=== PATIENT | female | born 1930 | race Caucasian/White ===

== ENCOUNTER → 2016-06-23 | Outpatient (CLI) | payer MEDICARE, BC ==
[~2016-06-23] MED LIST: ALBU8.5H INH; CALC-1072; DIGO125T88 PO; DOXY100C40 PO; FISH1CAP28; ISOS60TA4 PO; LOSA1TAB56 PO; METR70GE5 VAGINALLY; MULT-933 PO; NITR0.4T SL; ONDA4TAB10 PO; PANT20TA13; PROP15DR OP; RANI150T7 PO; SIMV80TA5 PO; VERA180C3; VIT1CAPS47; WARF3TAB6 PO
--- NOTE | 2016-06-24 07:46 | DI ---
INDICATION: ITS.REASON: J20.9 Acute bronchitis, R09.89 RHONCHI LEFT LUNG BASE, PROCEDURE: CHEST 2-VIEWS UPRIGHT (PA \T\ LAT) Encounter: Initial COMPARISON: None FINDINGS: The lungs are hyperexpanded yet clear without evidence of focal abnormal airspace opacity. There is bibasal parenchymal scarring. There is no pleural effusion or pneumothorax. There is a fixed hiatal hernia. The heart is mildly enlarged in size, mediastinal contours and pulmonary vascularity are within normal limits. Degenerative changes of the spine are noted. IMPRESSION: 1. No acute cardiopulmonary disease. 1. Mild cardiomegaly without overt congestive failure. 3. Mild COPD. .
== END ==
LOC: LAB 11:59
PROVIDERS: ATTEND Nurse Practitioner
DX: J44.9 Chronic obstructive pulmonary disease, unspecified (principal); K44.9 Diaphragmatic hernia without obstruction or gangrene; I51.7 Cardiomegaly; J20.9 Acute bronchitis, unspecified; R09.89 Other specified symptoms and signs involving the circulatory and respiratory systems

== ENCOUNTER 2016-07-11 16:59 | Emergency (ER) | payer MEDICARE, BC ==
[~2016-07-11] VITALS: Ht 165.1 cm; Wt 66.8 kg
[~2016-07-11 16:59] MED LIST changes: -CALC-1072; +CALC-1072 PO; -FISH1CAP28; +FISH1CAP28 PO; -VERA180C3; +VERA180C3 PO; -VIT1CAPS47; +VIT1CAPS47 PO
[2016-07-11 17:00] VITALS: Ht 165.1 cm; Wt 66.8 kg
--- OUTSIDE RECORDS SUMMARY | 2016-07-11 17:03 | XMS REPORT ---
Author Author [facility], [facility] - Organization Unknown Address Unknown Phone Unavailable Allergies, Adverse Reactions, Alerts * Penicillin G causes Eczema (rash). * Latex Allergy has not been assessed. * IV Contrast Allergy has not been assessed. Problems * Chest Pain* Status:Active. Procedures No relevant procedures performed. Medication Medication reconciliation has not been performed. Results LAB--CHEMISTRY from 01/18/2013 11:17 PMAnion Gap 7 (3-20 ) Albumin 3.6 g/dL (3.5-4.8 g/dL) Alkaline Phosphatase 42 U/L (26-104 U/L) ALT (SGPT) 20 U/L (14-54 U/L) AST (SGOT) 22 U/L (15-41 U/L) Bilirubin Total 1.2 mg/dL (0.2-1.2 mg/dL) BUN 18 mg/dL (4-20 mg/dL) Calcium 9.4 mg/dL (8.6-10.0 mg/dL) Chloride 103 mEq/L (99-109 mEq/L) CO2 27 mEq/L (22-32 mEq/L) Creatinine 0.93 mg/dL (0.44-1.03 mg/dL) eGFR 58 A (>60- ) Globulin 2.7 g/dL (1.9-4.3 g/dL) Glucose 111 mg/dL H (70-100 mg/dL) Potassium 3.6 mEq/L (3.6-5.1 mEq/L) Sodium 137 mEq/L (136-144 mEq/L) Protein 6.3 g/dL (6.1-7.9 g/dL) LAB--COAG STUDIES from 01/18/2013 11:17 PMINR 2.3 H (0.9-1.2 ) LAB--HEMATOLOGY from 01/18/2013 11:17 PMAbsolute Basophils 0.02 THOUS (0.00- 0.20 THOUS) Absolute Eosinophils 0.06 THOUS (0.00-0.50 THOUS) Absolute Lymphocytes 1.28 THOUS (0.80-3.30 THOUS) Absolute Monocytes 0.73 THOUS (0.30-1.00 THOUS) Absolute Neutrophils 4.37 THOUS (1.90-7.00 THOUS) HCT 41.8 % (37.0-47.0 %) HGB 14.5 g/dl (12.0-16.0 g/dl) MCH 30.8 pg (27.0-32.0 pg) MCHC 34.7 g/dL (32.0-36.0 g/dL) MCV 88.7 fL (82.0-99.0 fL) MPV 11.0 fL (9.4-12.4 fL) Platelet Count 196 K/uL (150-400 K/uL) RBC 4.71 M/uL (4.00-5.20 M/uL) RDW 13.6 % (11.5-14.5 %) WBC 6.5 K/uL (4.8-10.8 K/uL) Basophils 0 % (0-2 %) Eosinophils 1 % (0-4 %) Immature Granulocytes 0.3 % (0.0-1.0 %) Lymphocytes 20 % (20-46 %) Monocytes 11 % (4-11 %) Nucleated RBC Automated 0.0 /100 WBC (0 /100 WBC) Neutrophils 67 % (51-75 %) LAB--MICROBIOLOGY from 01/19/2013 12:20 AMVaginitis (G vag, Trichomonas, Kathy ) Panel Source: Cervix/Vaginal Collected: 01/19/13 00:20 Site: Received : 01/19/13 00:25 Order#: [id number] Affirm Vaginitis Panel FINAL 01/19/13 01:30 Negative for Trichomonas vaginalis Negative for Gardnerella vaginalis Negative for Kathy species KINNEY FOR RESULTS: * - NEW RESULT - RESULT WAS MODIFIED AFTER FINAL STATUS SET LAB--URINE TESTS from 01/18/2013 11:17 PMAppearance Clear Bilirubin Negative (Negative ) Blood Pos 3+ A (Negative ) Color Yellow Glucose Negative (Negative ) Ketones, Urine Negative (Negative ) Leukocytes Esterase Negative (Negative ) Nitrites Negative (Negative ) pH, Urine 7.0 (5.0-8.0 ) Protein Negative (Negative ) Specific [place] 1.008 (1.003-1.030 ) Collection Type: Clean Catch Urobilinogen Negative mg/dL (-<1.0 mg/dL) Epithelial Cells 0-2 /HPF RBC 20-50 /HPF A (0-2 /HPF) WBC 0-2 /HPF (0-4 /HPF)
--- OUTSIDE RECORDS SUMMARY | 2016-07-11 17:04 | XMS REPORT | Continuity of Care Document ---
Author Author [facility] Organization [facility] Address Unknown Phone Unavailable Support Name Relationship Address Phone CHER WHEELER APRN Caregiver [address] [place] [address] Unavailable CHRISTINA, ELADIA W Caregiver [address] [place] [address] Unavailable KALIE ALVAREZ Next Of Kin Unknown [phone] Insurance Providers Guarantor Digna Alvarez Address [address] [place] [address] Payer [employer] Select Plan 65 Policy Number [id number] Subscriber's Name Digna Alvarez Relationship 18 Self Payer Medicare Policy Number [id number] Subscriber's Name Digna Alvarez Relationship 18 Self Chief Complaint and Reason for Visit Chief Complaint Cough,Fever,Flu,URI Reason for Visit Acute bronchitis Rhonchi at left lung base Problems Past Problems Medical Problem Onset Date Acute bronchitis Unknown Rhonchi at left lung base Unknown Medications Current Home Medications Medication Dose Units Route Directions Days Qty Instructions Start Date Albuterol Sulfate (Proair Hfa 90 Mcg/Actuation) 8.5 Gm Hfa.aer.ad 1 Puff Inhalation Every 6 Hours as needed for Wheezing 7 Days [address] Lamonte Anderson [employer] [facility] [address] [phone] 06/23/16 Calcium Carbonate/Vitamin D3 (Caltrate 600 + D Soft Chew Tab) Unknown Strength Tab.chew Unknown Dose 06/23/16 Digoxin 125 Mcg Tablet 1 Tab Oral Daily 06/23/16 Doxycycline Monohydrate 100 Mg Capsule 1 Cap Oral Twice Daily With Meals 7 Days [address] Lamonte Anderson [employer] * [facility] [address] . [phone] 06/23/16 Isosorbide Mononitrate (Isosorbide Mononitrate Er) 60 Mg Tab.er.24h 1 Tab Oral Daily 30 Tablet 06/23/16 Losartan/Hydrochlorothiazide (Losartan-Hctz 100-12.5 Mg Tab) 1 Each Tablet 1 Tab Oral Daily 06/23/16 Metronidazole 70 Gm Gel.w.appl 1 Applicator Vaginally Bedtime 70 Gram 06/23/16 Multivitamin (Multi-Day Vitamins) 1 Each Tablet 1 Tab Oral Daily 30 Tablet 06/23/16 Nitroglycerin (Nitrostat) 0.4 Mg Tablet 0.4 Mg Sublingual for Chest Tightness 06/23/16 Palmer-3 Fatty Acids/Fish Oil (Palmer 3 1,000 Mg Softgel) 1 Each Capsule 06/23/16 Ondansetron (Ondansetron Odt) 4 Mg Tab.rapdis 1 Tab Oral Every 6-8 Hours Prn 16 Tablet 06/23/16 Pantoprazole Sodium 20 Mg Tablet. 06/23/16 Propylene Glycol/Peg 400 (Systane 0.3-0.4% Eye Drops) 15 Ml Drops 1 Drop Ophthalmic Four Times Daily 30 Milliliter 06/23/16 Ranitidine Hcl 150 Mg Tablet 150 Mg Oral Twice A Day Take 1 tablet, by mouth, 2 times a day. 06/23/16 Simvastatin 80 Mg Tablet 80 Mg Oral Bedtime Take 1 tablet, by mouth , 1 time a day (at BEDTIME). 06/23/16 Verapamil Hcl (Verapamil Sr) 180 Mg Cap24h.pel 06/23/16 Vit C/E/Zn/Coppr/Lutein/Zeaxan (Preservision Areds 2 Softgel) 1 Each Capsule 06/23/16 Warfarin Sodium 3 Mg Tablet 1 Tab Oral Daily 30 Tablet 06/23/16 Social History No social history. Hospital Discharge Instructions No hospital discharge instructions. Plan of Care Discharge Date 06/23/16 11:44am Disposition 01 DISCHARGED HOME, SELF-CARE Condition at Discharge Stable Instructions/Education Provided Acute Bronchitis (GEN) Prescriptions See Medication Section Referrals ELADIA HAQUE Address: [address] [phone] Additional Instructions/Education Please follow up with Dr. Haque this week for a recheck. ER if symptoms worsen. Functional Status No functional status results. Allergies, Adverse Reactions, Alerts Allergen Type Severity Reaction Status Last Updated Penicillin Allergy Mild Active 06/23/16 Immunizations No immunization records. Vital Signs Acute Vital Signs Vital Response Date/Time Temperature (Fahrenheit) 98.1 deg F (96.8 - 99.1) 06/23/2016 11:18am Temperature (Calculated Celsius) 36.72314 degrees C (36.0 - 37.3) 06/23/2016 11:18am Pulse Rate (adult) 62 bpm (60 - 100) 06/23/2016 11:18am Respiratory Rate 24 breaths/min (10 - 20) 06/23/2016 11:18am O2 Sat by Pulse Oximetry 93 % (90 - 100) 06/23/2016 11:18am Blood Pressure 109/57 mm Hg 06/23/2016 11:18am Height (Inches) 63.50 inches 06/23/2016 11:18am Weight (Kilograms) 66.700 kg 06/23/2016 11:18am Body Mass Index (BMI) 25.0 06/23/2016 11:18am Results No known relevant diagnostic tests, laboratory data and/or discharge summary. Procedures No known history of procedures. Encounters Encounter Location Arrival/Admit Date Discharge/Depart Date Attending Provider Departed Emergency Room [facility] 06/23/16 10:31am 06/23/16 11: 44am CHER WHEELER APRN Recent Diagnosis
--- OUTSIDE RECORDS SUMMARY | 2016-07-11 17:04 | XMS REPORT | Continuity of Care Document ---
Author Author [facility] Organization [facility] Address Unknown Phone Unavailable Allergies Active Description Code Type Severity Reaction Onset Reported/Identified Relationship to Patient Clinical Status Yes Penicillin G Drug Allergy N/A Eczema (rash) 07/17/2009 Yes No Known Allergies Drug Allergy Unknown N/A 04/29/2013 Yes Penicillins Drug Allergy Moderate U 04/29/2013 Medications Problems Date Dx Coded Attending Type Code Diagnosis Diagnosed By 01/18/2013 Tai Barber MD Final 401.9 HYPERTENSION NOS 01/18/2013 Tai Barber MD Final 620.2 OVARIAN CYST NEC NOS 01/18/2013 Tai Barber MD Admitting 623.8 NONINFL DISORDER VAG NEC 01/18/2013 Tai Barber MD Final 626.8 MENSTRUAL DISORDER NEC Procedures Code Description Performed By Performed On 17.42 LAPAROSCOPIC ROBOTIC ASSISTED PROCEDURE Ladonna France MD 05/06/2013 66.4 TOTAL UNILAT SALPINGECT Ladonna France MD 05/06/2013 68.41 LAPAROSCOPIC TOTAL ABDOMINAL HYSTERECTOMY Ladonna France MD 05/06/2013 Results Test Result Range CBC - 04/29/13 11:22 MEAN CELL HGB 30.9 pg 27.0-33.0 MEAN CELL HGB CONCENTRATION 34.3 g/dL 32.0-37.0 MEAN CELL VOLUME 90.0 fl 80.0-100.0 RED BLOOD CELL 4.99 m/cumm 4.00-6.00 RED CELL DISTRIBUTION WIDTH 13.7 % 11.0- 15.6 WHITE BLOOD CELL 7.8 k/cumm 5.0-10.0 HEMOGLOBIN 15.4 gm/dL 12.0-16.0 HEMATOCRIT 44.9 % 37.0-47.0 PLATELET COUNT 201 k/cumm 150-400 PROTHROMBIN TIME WITH INR - 04/29/13 11:22 INTERNATIONAL NORMAL RATIO 2.5 0.9-1.1 PROTHROMBIN TIME 27.2 sec 9.3-12.2 METABOLIC PANEL, COMPREHN - 04/29/13 11:22 POTASSIUM 3.7 mmol/L 3.5-5.3 EST GFR (MDRD) > 60 mL/min > 59 ANION GAP 9 mmol/L 5-15 GLUCOSE 109 mg/dL 70-99 CALCIUM 9.9 mg/dL 8.5-10.1 BLOOD UREA NITROGEN 20 mg/dL 7-20 CREATININE 0.9 mg/dL 0.6-1.0 SODIUM 142 mmol/L 135-148 CHLORIDE 105 mmol/L 98-110 AST/SGOT 17 Units/L 10-37 ALT/SGPT 25 Units/L < 66 CARBON DIOXIDE 28 mmol/L 21-32 TOTAL PROTEIN 7.4 gm/dL 6.4-8.2 ALBUMIN 3.9 gm/dL 3.4-5.0 BILI TOTAL 1.4 mg/dL 0.0-1.0 ALKALINE PHOSPHATASE TOTAL 51 IU/L 45- 117 PROTHROMBIN TIME WITH INR - 05/06/13 05:35 INTERNATIONAL NORMAL RATIO 1.0 0.9-1.1 PROTHROMBIN TIME 10.9 sec 9.3-12.2 HGB HCT - 05/06/13 12:45 MEAN CELL VOLUME 91.4 fl 80.0-100.0 HEMOGLOBIN 13.7 gm/dL 12.0-16.0 HEMATOCRIT 41.4 % 37.0-47.0 Encounters ACCT No. Visit Date/Time Discharge Status Pt. Type Provider Facility Loc./Unit Complaint [id number] 01/18/2013 22:30:00 2012 01:25:00 DIS Emergency Sunil HUBER, Tai Hwang [facility]
--- OUTSIDE RECORDS SUMMARY | 2016-07-11 17:05 | XMS REPORT ---
Author Author Pacheco Haque [facility] Address [address] [place] [address] Care Team Providers Care Medical Representative Name Role Phone Pacheco Haque Unavailable [phone] PROBLEMS Type Condition ICD9-CM Code JYM24-AL Code Onset Dates Condition Status SNOMED Code Problem Atrial fibrillation I48.91 Active 55501698 Problem Osteoarthritis M19.90 Active 475833448 Problem Macular degeneration H35.30 Active 170953068 Problem Hypercholesterolemia E78.0 Active 72613068 Problem penitentiary current use of anticoagulant Z79.01 Active 050434392 Problem Other left bundle branch block I44.7 Active 64207215 Problem Rosacea L71.9 Active 386786123 Problem Esophageal reflux K21.9 Active 228020469 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
[2016-07-11] MEDS ORDERED: PANT40TA27 PO (17:19)
[2016-07-11] MEDS ORDERED: ISOS30TA6 PO (17:21)
--- NOTE | 2016-07-11 17:23 | ERPDOC ---
Departure Disposition Decision Date: Jul 11, 2016 Disposition Decision Time: 20:36 () Disposition: 01 DISCHARGED HOME, SELF-CARE Impression Impression (FELY SULLIVAN APRN) Impression: Primary Impression: Atypical chest pain Severity: Moderate () Condition: Improved Seen By: Physician only () Referrals: ELADIA VASQUEZ (Family) 3 Days Problems/Meds/Labs Reviewed?: Yes Medications reviewed and manag: Yes () Additional Instructions: Continue your home medications as prescribed. We did not find a cause of your pain. Follow up with your golf club maker tomorrow as previously arranged. Follow up care ordered?: Yes Mental Status: Alert, Oriented () HPI - Chest Pain General Stated Complaint: CHEST PAIN Time Seen by Provider: 17:18 Source: patient Exam Limitations: no limitations (FELY SULLIVAN APRN) Time Seen by Provider: 20:35 ( ) HPI - Chest Pain Initial Comments Kristan is an 85 year old female who recently has had pneumonia. Finished antibiotics and has been doing fine. Saw her PCP a few weeks ago and had an INR of 7.6, that was rechecked this Friday and was down to 2.8. This morning she developed central chest pressure. It let up and then returned around noon. She took one nitro and it didn't help. Finally decided to come get checked out in ER. Occurred At: home Onset/Timing: Gradual Duration: 6-12 hrs Activities at Onset/Context: none Location: substernal Quality: pressure Associated Symptoms: denies symptoms Nitro Today/Relief: 0.4 mg x 1 Aspirin Treatment Today: unknown (pt refuses because of recently elevated INR) Prior Chest Pain/Cardiac Mo: no prior chest pain Hx of Similar Symptoms: No (FELY SULLIVAN APRN) Allergies: Coded Allergies: Penicillins (Verified Allergy, Mild, 06/23/16) Past History Past Medical History Metabolic: hypertension Cardiac: A-fib, DENIES: CAD (FELY SULLIVAN APRN) Surgical History Reproductive/: hysterectomy (FELY SULLIVAN APRN) Social History Smoking Status: Never smoker # of Years: 3 Second Hand Exposure: Yes Substance Use Type: does not use Alcohol Intake: none Current Occupational Status: retired (FELY SULLIVAN APRN) Review of Systems Cardiovascular Cardiac: chest pain, DENIES: dyspnea on exertion (FELY SULLIVAN ELEVATOR WORKER) Pulmonary Respiratory: cough, pneumonia hx (FELY SULLIVAN ELEVATOR WORKER) GI Upper Abdomen: DENIES: nausea, vomiting (FELY SULLIVAN ELEVATOR WORKER) Neurological General: DENIES: headache (FELY SULLIVAN ELEVATOR WORKER) All other Systems All Other Systems: Reviewed and Negative (FELY SULLIVAN APRN) Physical Exam General General Nourishment: well nourished, well developed, appears stated age, no acute distress (FELY SULLIVAN ELEVATOR WORKER) Vitals and Pain First Documented Vital Signs Date Time Temp Pulse Resp B/P Pulse Ox O2 Delivery O2 Flow Rate FiO2 07/11/16 17:00 98.1 66 18 171/110 95 Room Air ([facility] DO) Vitals and Pain Weight: Kilograms: Height (feet): Height (inches): 63.50 Triage Pain Scale: (FELY SULLIVAN APRN) Eyes (brief) Eyes Brief: not found: scleral icterus (FELY SULLIVAN ELEVATOR WORKER) ENMT (brief) ENMT Brief: FOUND: mucosa moist, NOT FOUND: pharnyx erythema (FELY SULLIVAN ELEVATOR WORKER) Neck (brief) Neck: FOUND: trachea midline (FELY SULLIVAN ELEVATOR WORKER) Respiratory (brief) Respiratory: FOUND: clear all lynch, equal bilaterally (MISSAEL SULLIVANARA ELEVATOR WORKER) Cardiovascular (brief) Cardiac: FOUND: other (irregular irregular) (FELY SULLIVAN ELEVATOR WORKER) Abdomen (brief) Abdominal Brief: FOUND: bowel normo active x4, soft, NOT FOUND: tender (MISSAEL SULLIVANARA ELEVATOR WORKER) Lymphatic (brief) Lymphatic Brief: NOT FOUND: lymphedema (MISSAEL SULLIVANARA ELEVATOR WORKER) Musculoskeletal (brief) Musculoskeletal Brief: NOT FOUND: tenderness (no reproducible chest wall tenderness) (FELY SULLIVAN ELEVATOR WORKER) Integumentary (brief) Integumentary Brief: FOUND: dry, pink, warm (MISSAEL SULLIVANARA ELEVATOR WORKER) Psychiatric (brief) Psychiatric Brief: FOUND: alert, attentive, normal affect, oriented (FELY SULLIVAN ELEVATOR WORKER) Differential Diagnoses Considering: Acute SD, Angina, Costochondritis (MISSAEL SULLIVANARA ELEVATOR WORKER) Progress Results/Orders Orders Procedure Category Date Status Time Cbc W/Auto LAB 07/11/16 Complete Diff-Reflex Manual 17:18 Bmp - Basic Metabolic LAB 07/11/16 Complete Panel 17:18 Probnp LAB 07/11/16 Complete 17:18 Troponin I W LAB 07/11/16 Complete Hemolysis Index 17:18 INR LAB 07/11/16 Complete 17:18 EKG EKG 07/11/16 Taken 17:18 Chest 1 View RAD 07/11/16 Taken 17:18 Iv Lock (Ed Only) EDM 07/11/16 Transmitted 17:18 Aspirin (Asa) PHA 07/11/16 Complete 17:30 Nitroglycerin PHA 07/11/16 In Process (Nitrostat) 17:30 Troponin I W LAB 07/11/16 Complete Hemolysis Index 19:50 ( DO) Lab Results Laboratory Tests Test 07/11/16 17:28 07/11/16 19:54 White Blood Count 5.2T/MM3 Red Blood Count 4.73M/MM3 Hemoglobin 14.6GM/DL Hematocrit 44.2% Mean Corpuscular Volume 93.4UM3 Mean Corpuscular Hemoglobin 30.9UUG Mean Corpuscular Hemoglobin Concent 33.0GM/DL RDW Standard Deviation 44.4FL Platelet Count 187T/MM3 Mean Platelet Volume 10.6UM3 Immature Granulocyte % (Auto) 0.2% Neutrophils (%) (Auto) 60.4% Lymphocytes (%) (Auto) 25.4% Monocytes (%) (Auto) 12.4% Eosinophils (%) (Auto) 0.8% Basophils (%) (Auto) 0.8% Absolute Immature Granulocyte (auto 0.01T/MM3 Absolute Neutrophils (auto) 3.1T/MM3 Absolute Lymphocytes (auto) 1.3T/MM3 Absolute Monocytes (auto) 0.6T/MM3 Absolute Eosinophils (auto) 0.0T/MM3 Absolute Basophils (auto) 0.0T/MM3 Prothromb Time International Ratio 3.87 Turbidity < 20 Sodium Level 144MEQ/L Potassium Level 3.9MEQ/L Chloride Level 102MEQ/L Carbon Dioxide Level 30MEQ/L Anion Gap 12MEQ/L Blood Urea Nitrogen 20.0MG/DL Creatinine 0.9MG/DL Glomerular Filtration Rate Calc 59 BUN/Creatinine Ratio 22RATIO Glucose Level 124MG/DL Calculated Osmolality 281MOSM/KG Calcium Level 9.4MG/DL Icterus Index < 2 Troponin I < 0.012ng/ml < 0.012ng/ml OO-Xwo-U-Type Natriuretic Peptide 1680PG/ML Chemistry Specimen Hemolysis < 15 < 15 () Medications Current ED Medications Aspirin (ASA) 324 mg O ONCE PO ; Start 07/11/16 at 17:30; Stop 07/11/16 at 17: 31; Status DC Nitroglycerin (Nitrostat) 0.4 mg Q5MIN PRN SL CHEST PAIN Last administered on t 17:43; Start 07/11/16 at 17:30 () Progress Progress 1739 - spoke with daughter and patient. they both report patient has history of LBBB 1819 - discussed lab with patient and daughter. pt continues to have chest discomfort despite 2 nitro in ED. BP improved. Daughter requesting transfer to [facility], declines admission at [facility] by Dr. Schneider. 1824- Two calls to [facility] answering service-voice mail message "This is Renato , leave a message." Unsure of whose VM this was, will call hospital directly. 1839- Call to [facility] one call center, spoke with Beverly regarding possible admit/ transfer 1908 - Report given to Dr. Melgar regarding repeat troponin at 8 pm. He will follow. (FELY SULLIVAN APRN) Progress 2035 - cTnI resulted undectable. Will d/c to home with prior RTC precautions. () EKG EKG : Rate: 60-100 Rhythm: atrial fibrillation [place]: left QRS: LBBB ST/T: non-specific changes Interpreted by: signing physician (FELY SULLIVAN APRN) Consult/PCP Consult/PCP #1: Physician Contacted: Jennie Time Called: 17:10 Time of first response: 17:10 Type of discussion: Request Presence in ED Time Arrived: 17:15 Discussion Details Doubtful AMI but recommended admit for rule out after workup Consult/PCP #2: Physician Contacted: Mak Time Called: 18:40 Time of first response: 18:45 Type of discussion: Admit Discussion/PCP Discussion Details Knows patient well. Neg cath 2 years ago. Recommended repeat Trop 8 pm and if neg send home. Patient and dtr advised and agree. (FELY SULLIVAN APRN) Xray Xray : Xray: CXR Portable Interpretation: Normal (stable) (FEYL SULLIVAN APRN) FELY SULLIVAN APRN Jul 11, 2016 17:23 JULY,PEACE Greene DO Jul 11, 2016 20:38
--- OUTSIDE RECORDS SUMMARY | 2016-07-11 17:23 | XMS REPORT ---
Author Author [facility], [facility] - Organization Unknown Address Unknown Phone [...] 00:20 Site: Received : 01/19/13 00:25 Order#: [id number] Affirm Vaginitis Panel FINAL 01/19/13 01:30 Negative [...] (5.0-8.0 ) Protein Negative (Negative ) Specific [place] 1.008 (1.003-1.030 ) Collection Type: Clean Catch Urobilinogen Negative mg/dL (-<1.0 mg/dL) Epithelial Cells 0-2 /HPF RBC 20-50 /HPF A (0-2 /HPF) WBC 0-2 /HPF (0-4 /HPF)
--- OUTSIDE RECORDS SUMMARY | 2016-07-11 17:23 | XMS REPORT | Continuity of Care Document ---
Author Author [facility] Organization [facility] Address Unknown Phone Unavailable Allergies Active Description [...] Status Pt. Type Provider Facility Loc./Unit Complaint [id number] 01/18/2013 22:30:00 2012 01:25:00 DIS Emergency Sunil HUBER, Tai Hwang [facility]
[2016-07-11] MEDS ORDERED: ACET325T51 PO (17:24)
[2016-07-11] MEDS ORDERED: ASPIRIN 81 MG CHEWABLE TABLET PO ONE (17:30)
[2016-07-11] MEDS: NITROGLYCERIN 0.4 MG SUBLINGUAL TABLET SL PRN ×2 (17:30→17:43)
[2016-07-11 17:33] LABS: BASOPHILS % (AUTO) 0.8 % (0-2); EOSINOPHILS % (AUTO) 0.8 % (0-4); HCT - HEMATOCRIT 44.2 % (36-46); HGB - HEMOGLOBIN 14.6 GM/DL (12-16); IMMATURE GRANULOCYTE # (AUTO) 0.01 T/MM3 (0.00-0.03); IMMATURE GRANULOCYTE % (AUTO) 0.2 % (0.0-0.5); LYMPHOCYTES # (AUTO) 1.3 T/MM3 (1-4.8); LYMPHOCYTES % (AUTO) 25.4 % (23-45); MEAN CORPUSCULAR HGB 30.9 UUG (26-34); MEAN CORPUSCULAR VOLUME 93.4 UM3 (80-100); MEAN PLATELET VOLUME 10.6 UM3 (9.4-12.4); MONOCYTES # (AUTO) 0.6 T/MM3 (0-0.8); MONOCYTES % (AUTO) 12.4 % (0-9.0); NEUTROPHILS #(AUTO)-ABSOLUTE 3.1 T/MM3 (1.8-7.7); NEUTROPHILS % (AUTO) 60.4 % (33-66); RED BLOOD COUNT 4.73 M/MM3 (4.00-5.20); WBC - WHITE BLOOD COUNT 5.2 T/MM3 (4.5-11.0)
[2016-07-11 17:37] LABS: INR 3.87 (0.76-1.04); PROTHROMBIN TIME 42.2 SEC (9.31-12.49)
[2016-07-11 17:42] LABS: ANION GAP 12 MEQ/L (5-15); BUN/CREATININE RATIO 22 RATIO (6-26); CALCIUM 9.4 MG/DL (8.4-10.2); CHLORIDE 102 MEQ/L (98-107); CO2 - CARBON DIOXIDE 30 MEQ/L (22-30); CREATININE 0.9 MG/DL (0.7-1.2); GLOMERULAR FILTRATION RATE 59; GLUCOSE 124 MG/DL (65-110); POTASSIUM 3.9 MEQ/L (3.6-5); SODIUM 144 MEQ/L (134-144)
[2016-07-11 18:14] LABS: PROBNP 1680 PG/ML (0-175)
[2016-07-11 20:45] VITALS: BP 125/59; PULSE 60; RESP 22; TEMP 98.1; O2SAT 93
--- NOTE | 2016-07-12 08:05 | DI ---
Indication: ITS.REASON: CHEST PAIN PROCEDURE: CHEST 1 VIEW: Encounter: Initial Comparison: June 23, 2016 Findings: Minimal platelike atelectasis in the lingula. Lungs are otherwise clear. No consolidative pneumonia, pleural effusion or pneumothorax. Cardiac silhouette remains moderately enlarged. Mediastinal contours and pulmonary vascularity are within normal limits. Impression: No pneumonia. .
== END 2016-07-11 20:45 | disposition home or self-care (01) ==
LOC: ED 16:59
DX: R07.89 Other chest pain (principal); I10 Essential (primary) hypertension
CPT/HCPCS: 36000; 36415; 71010; 80048; 83880; 84484; 85025; 85610; 93005; 99284; A9270